=== PATIENT | male | born 1970 | race Caucasian/White ===

== ENCOUNTER → 2020-08-29 | Outpatient (CLI) | payer OTHER ==
[~2020-08-29] MED LIST: AMOXIL 875 MG875 M1 PO; ANCEF 1GM1 GM/50 M1; ASPIRIN EC81 M1; ASPIRIN325 PO; LISINOPRIL PO; NORVASC10 MG PO; PAIN RELIEVER500 M3; VICODIN 5-3001 EACH
== END ==
LOC: CAT 09:02
PROVIDERS: ATTEND Internal Medicine Cardiovascular Disease
DX: Z12.31 Encounter for screening mammogram for malignant neoplasm of breast (principal); E78.00 Pure hypercholesterolemia, unspecified; I25.10 Atherosclerotic heart disease of native coronary artery without angina pectoris

== ENCOUNTER → 2020-08-30 | Outpatient (CLI) | payer OTHER | LOC: SJCVCIMAG | PROVIDERS: ATTEND Internal Medicine Cardiovascular Disease | DX: Z01.818 Encounter for other preprocedural examination (principal); I11.9 Hypertensive heart disease without heart failure; R00.0 Tachycardia, unspecified; E78.5 Hyperlipidemia, unspecified; Z87.891 Personal history of nicotine dependence ==